=== PATIENT | male | born 1985 | race Caucasian/White ===

== ENCOUNTER 2019-05-27 09:57 | Emergency (ER) | payer OTHER ==
[~2019-05-27] VITALS: Ht 167.6 cm; Wt 56.6 kg
[2019-05-27] MEDS ORDERED: IBUPROFEN 800 MG TAB PO ONE (10:45)
--- NOTE | 2019-05-27 11:20 | REP ---
Right shoulder: Three views. History: Question dislocation. Findings: Three views right shoulder demonstrate an anterior inferior glenohumeral dislocation. No observable fracture. The acromioclavicular joints are normally aligned. Impression: Anterior inferior glenohumeral dislocation. No observable fracture. Electronically Signed by Jerry Chery MD 05/27/2019 11:11 A
[2019-05-27] MEDS ORDERED: ONDANSETRON 4MG/2ML VIAL (J2405) IV ONE (11:30)
[2019-05-27] MEDS ORDERED: MORPHINE 4 MG/ML 1ML VIAL/SYRINGE (J2270) IV ONE (11:30)
[2019-05-27] MEDS ORDERED: NS 1,000 ML IV SCH (12:55)
[2019-05-27] MEDS ORDERED: propofoL 200 MG/20 ML VIAL IV PRN (13:00)
--- NOTE | 2019-05-27 13:44 | REP ---
Right shoulder single AP view, post reduction: Comparison is the right shoulder study performed earlier today. The humeral head dislocation has been per a satisfactory reduced and the humeral head is now in satisfactory position alignment with the glenoid as seen in this single projection. Electronically Signed by Junior Spain MD 05/27/2019 01:35 P
[2019-05-27 14:05] VITALS: BP 134/87
== END 2019-05-27 14:08 | disposition home or self-care (01) ==
LOC: M ED 09:57
DX: M24.411 Recurrent dislocation, right shoulder (principal); F17.220 Nicotine dependence, chewing tobacco, uncomplicated
CPT/HCPCS: 23650; 73020; 73030; 93041; 94760; 96374; 96375; 99285; J2270; J2405